=== PATIENT | male | born 1935 | race Caucasian/White ===

== ENCOUNTER 2016-12-17 07:21 | Day surgery (SDC) | payer MEDICARE, OTHER ==
--- NOTE | 2016-12-16 11:41 | PCM.ANEPRE ---
Anesthesia Pre-Op Review Reason for Review: CARDIAC Anesthesia Recommendations: Proceed with Procedure Additional Comments pt scheduled for cysto litholapaxy with laser. Pt also with a history of CAD s/ p CABG in 1995. recently saw applications processor with consult note in chart. Certified Professional Midwife states the patient is clinically stable and doing well from cardiac standpoint. he also notes that patient is on plavix and may need to coordinate cessation of it prior to surgery with urology . Dylan Pereira MD Dec 16, 2016 11:41
[2016-12-17] VITALS (9 sets, daily range): BP systolic 116–156; BP diastolic 71–88; PULSE 56–68; RESP 15–21; O2SAT 93–98
[~2016-12-17] VITALS: Ht 185.4 cm; Wt 90.2 kg
[2016-12-17] MEDS: Lactated Ringer's 1,000 ML IV SCH ×2 (05:12→09:54)
[~2016-12-17 07:21] MED LIST: ASCO100089 PO; ATOR20TA PO; CARV6.252 PO; CHOL200047 PO; CLOP75TA28 PO; DOXA1TAB PO; DOXY100T56 PO; FENO135C PO; FINA5TAB9 PO; LATA2.5D6 OP; LEVO100T6 PO; LOSA50TA37 PO; Levofloxacin 500 mg/100 mL D5W IV ONE; OMEG-86 PO
[2016-12-17] MEDS ORDERED: Propofol 10,000 mCg/mL 20 mL Inj ONE (07:22)
[2016-12-17] MEDS ORDERED: fentaNYL-PF 50 mCg/mL 2 mL Inj ONE (07:22)
[2016-12-17] MEDS ORDERED: Ondansetron 2 mg/mL 2 mL Inj ONE (07:22)
[2016-12-17] MEDS ORDERED: EPHEDrine/NS 5 mg/mL 5 mL Syringe ONE (07:22)
[2016-12-17] MEDS ORDERED: MetoCLOpramide 5 mg/mL 2 mL Inj ONE (07:22)
[2016-12-17] MEDS ORDERED: Dexamethasone 4 mg/mL Inj ONE (07:22)
[2016-12-17] MEDS ORDERED: Labetalol 5 mg/mL 4 mL Inj IV PRN (10:05)
[2016-12-17] MEDS ORDERED: hydrALAZINE 20 mg/mL Inj IVPUSH PRN (10:05)
[2016-12-17] MEDS ORDERED: HYDROmorphone 1 mg/mL Inj IVPUSH PRN (10:05)
[2016-12-17] MEDS ORDERED: Lactated Ringer's 1,000 ML IV SCH (10:05)
[2016-12-17] MEDS ORDERED: Ondansetron 2 mg/mL 2 mL Inj IVPUSH PRN (10:05)
[2016-12-17] MEDS ORDERED: Lactated Ringer's 500 ML IV PRN (10:05)
[2016-12-17] MEDS ORDERED: EPHEDrine Sulfate 50 mg/mL Inj IVPUSH PRN (10:05)
[2016-12-17] MEDS ORDERED: fentaNYL-PF 50 mCg/mL 2 mL Inj IVPUSH PRN (10:05)
[2016-12-17] MEDS ORDERED: MetoCLOpramide 5 mg/mL 2 mL Inj IVPUSH PRN (10:05)
[2016-12-17] MEDS ORDERED: Atropine 0.4 mg/mL Inj IVPUSH PRN (10:05)
[2016-12-17] MEDS ORDERED: Phenylephrine 10,000 mCg/mL Inj IVPUSH PRN (10:05)
--- NOTE | 2016-12-17 10:07 | PCM.HPANE ---
Patient Data Surgeon Admitting Provider: Attending Provider:Candice Gallagher MD Primary Care Physician:Delroy Edwards MD Other Provider:Flory Constantinoingham Anesthesia Reason for Visit Bilateral Kidney Stones Ht/WT & BMI Height (Feet): 6 Height (Inches): 1.00 Weight (Kilograms): 90.2 Body Mass Index 26.00 Allergies Coded Allergies: No Known Allergies (Verified Allergy, Unknown, 12/15/16) Diabetes History Hx Diabetes?: No Medications Blood Thinner: Plavix Hypertension Medication: Yes Home Meds Incl Beta Germain: Yes (Carvedilol 6.25mg) Date Beta Germain Taken: Dec 17, 2016 Time Beta Germain Taken: 0650 Reported Medications Losartan Potassium 50 Mg Fgbqgl93 Mg PO BID 12/15/16 Levothyroxine 100 Mcg [id number] Mcg PO DAILY For Thyroid Replacement Ref 0 12/15/16 Latanoprost 2.5 Ml Drops1 Gtt OP HS #1 BOTTLE 12/15/16 [place]-3S/Dha/Epa/Fish Oil/D3 (Fish Oil + D3 Softgel)1 Each Capsule1 Each PO BID 12/15/16 Finasteride 5 Mg Tablet5 Mg PO DAILY 30 Days Ref 0 12/15/16 Fenofibric Acid (Choline) (Trilipix)135 Mg Capsule.dr135 Mg PO HS 12/15/16 Doxycycline Monohydrate (Avidoxy)100 Mg Psfppb399 Mg PO BID 12/15/16 Doxazosin (Cardura)1 Mg Tablet1 Mg PO HS Ref 0 12/15/16 Clopidogrel 75 Mg Ozpsuj60 Mg PO DAILY Ref 0 12/15/16 Cholecalciferol (Vitamin D3) (Vitamin D3)2,000 Unit Capsule2,000 Unit PO BID 12/15/16 Carvedilol 6.25 Mg Tablet6.25 Mg PO BID Ref 0 12/15/16 Atorvastatin (Lipitor)20 Mg Kspjxn53 Mg PO DAILY Ref 0 12/15/16 Ascorbic Acid (Vitamin C)1,000 Mg Tab.chew1,000 Mg PO DAILY Ref 0 12/15/16 History Other HEENT Pertinent History: OTITIS EXTERNA OF RIGHT EAR Hx of Heart Problems?: Yes Cardiovascular History: Positive for:: Cardiac Surgery (CABG ) Coronary Artery Disease (HYPERLIPEDEMIA WITH MOD CAROTID DISEASE) Hypertension Other Cardiac History: HX OF SYNCOPE WITH NEGATIVE EP EVALUATION 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 (ROSACEA) Other History: Positive for:: Thyroid Disease (HYPOTHRYOID) Hx Diabetes: No Hx Alcohol Use: NoHx Substance Use: No Stop/Bang Risk Assessment Category Category 1A: Patient has history of documented sleep apnea, and HAS NOT received any narcotic, sedative or anesthesia administration during this stay. Category 1B: Patient has history of documented sleep apnea, and HAS received any narcotic , sedative or anesthesia administration during this stay Category 2: Patient has SUSPECTED Obstructive Sleep Apnea, and HAS received any narcotic , sedative or anesthesia administration during this stay. Category 3: Patient has SUSPECTED Obstructive Sleep Apnea and HAS NOT received narcotic, sedative or anesthesia administration during this stay. Category 4: Outpatient in Procedural Areas with known sleep apnea or who screen positive for High Risk via the STOP/BANG questionnaire. Exam Exam Vital Signs Vital Signs Date Time Temp Pulse Resp B/P Pulse Ox O2 Delivery O2 Flow Rate FiO2 12/17/16 07:52 36.5 57 16 142/75 97 Room Air General Appearance: Alert, Oriented X3, Cooperative, No Acute Distress HEENT/AIRWAY: MP 2 Lungs: Clear to Auscultation, Normal Air Movement Heart: Exam Unremarkable, Regular Rate/Rhythm, No Murmurs/Rubs/Gallops Meds/Labs/Diagnostics Admission Meds Current Medications Lactated Ringer's (Lr) 1,000 ml @ 120 mls/hr Q8H20M IV Last administered on t 05:12; Start 12/17/16 at 05:00; Stop 12/17/16 at 13:19 Plan Impression Patient chart reviewed, patient interviewed and anesthestic plan with risks, benefits, and alternatives discussed, and informed consent obtained. NPO Status: 12/16 at 1700 ASA Physical Status: ASA2 Mod Systemic Disease Anesthetic Plan: GA Bene/Risks/Altern/Consents: Yes HP Complete Prior to Induction: Yes Other pt wants a ga Delroy Arthur MD Dec 17, 2016 08:39
[2016-12-17] MEDS ORDERED: Belladonna Alk-Opium 60 mg Rectal Suppository RECTAL ONE (10:21)
[2016-12-17] MEDS ORDERED: HYDROcodone-APAP 5-325 mg Tablet PO PRN (11:20)
[2016-12-17] MEDS ORDERED: Phenazopyridine 97.5 mg Tablet PO PRN (11:20)
[2016-12-17] MEDS ORDERED: Ondansetron 8 mg ODT Tablet PO PRN (11:20)
--- NOTE | 2016-12-17 11:57 | PCM.ANEP2 ---
Post Anesthesia Evaluation ASA/CMS Post Anesthesia VS in Patient's Normal Range?: Yes Resp Stable; Airway Patent?: Yes CV Function & Hydration Stable: Yes Mental Status Recovered?: Yes Pain control Satisfactory?: Yes N/V Control Satisfactory?: Yes Delroy Arthur MD Dec 17, 2016 11:57
--- NOTE | 2016-12-17 11:57 | PCM.ANEP1 ---
Post Anesthesia Phase 1 PACU Phase 1 Assessment Vital Signs Vital Signs Date Time Temp Pulse Resp B/P Pulse Ox O2 Delivery O2 Flow Rate FiO2 12/17/16 11:51 59 21 144/88 94 Nasal Cannula 3 12/17/16 11:45 36.4 64 21 149/88 94 Nasal Cannula 3 12/17/16 11:30 62 19 150/87 98 Simple Mask 10 12/17/16 11:25 64 19 125/81 98 Simple Mask 10 12/17/16 11:20 66 21 134/71 97 Simple Mask 10 12/17/16 11:16 36.5 67 21 120/72 97 Simple Mask 10 12/17/16 07:52 36.5 57 16 142/75 97 Room Air Anesthetic Administered: GA Level of Alertness: Awake, talking GIBSON's with Equal Strength: Yes Pain: No Nausea or Vomiting: No Oxygen Delivery: Simple Mask Lungs: Clear to Auscultation, Normal Air Movement Dermatome Level: Full Sensation Delroy Arthur MD Dec 17, 2016 11:57
--- NOTE | 2016-12-18 13:46 | OP ---
[address] [address] OPERATIVE REPORT PATIENT: BRITTANY MÁRQUEZ : 1935 MR#: [id number] ADMIT: 12/17/2016 JOB ID: [id number] DATE OF SURGERY: 12/17/2016 PROCEDURE NAME: 1. Cystoscopy with a limited channel transurethral resection of prostate. 2. Cystolitholapaxy of a large amount of stone in aggregate, 4 x 5 x 2 cm in size as measured on CT. SURGEON: Candice Gallagher MD. ANESTHESIA: General. PREOPERATIVE DIAGNOSIS(ES): 1. Benign prostatic hypertrophy. 2. Intravesical prostate hematuria. 3. Bladder stones, multiple. POSTOPERATIVE DIAGNOSIS(ES): 1. Benign prostatic hypertrophy. 2. Intravesical prostate hematuria. 3. Bladder stones, multiple. INDICATIONS: The patient is an 81-year-old gentleman referred to Urology initially for gross hematuria. Found at workup to have bilateral nonobstructing renal stones and also a very enlarged prostate, incomplete bladder emptying and multiple rounded bladder stones in aggregate, easily 4 x 5 x 2 cm in size. Friable prostate with BPH changes. Counseled about options. Recommended certainly attention to remove the bladder stones to which he agreed. PROCEDURE IN DETAIL: After appropriate informed consent was obtained, patient was brought to the operating room. SCD were placed. Adequate general anesthesia was induced. He received IV Levaquin prior to onset of procedure. His preop urine culture was negative. He was carefully placed in dorsal position. All pressure points carefully padded. Cleaned, prepped, and draped usual sterile fashion. Rigid scope was introduced in the patient's bladder. Prostate was noted to be very large and quite friable with bleeding occurring with torquing of the scope itself to try to visualize the stones. This was making things quite difficult. To visualize the stones we were initially able to get in a 25-Argentine cystoscope sheath through which we could use the lithotrite mechanical and began to break the stone up. However, given the amount of bleeding we were getting from the prostate and difficulty visualizing the stones with the intravesical portion of the prostate, we elected to go ahead and switch over to the resectoscope setup and resect the prostate 180 degrees down enough to visualize better and achieve better hemostasis. This was done. It took about 20 minutes to resect that amount of prostate with the button for vaporization and cauterization. Once we did this, we were able to see a stone better once again, so removed the resectoscope and once again went in under visual guidance with the 25-Argentine outer sheath and were able to use the lithotrite to break up the remaining amount of stone with better visualization this time. Allowed us to remove this large burden of stone from the patient's bladder throughout the course of the case. Once this was done, and the stones themselves were all removed, we again removed the cystoscope. Went in again with visual obturator with the 27-Argentine resectoscope set and worked on hemostasis once again of this friable proximal ablated prostate area. Once we were done, urine was light red. The patient tolerated the procedure well. He was free of stones. A 22-Argentine Schulz catheter was passed easily into the patient's bladder. This was irrigated out further to quite clear and left to gravity drainage. Drainage there was light pink. He was given a B and O suppository, awakened and taken in stable condition to the postanesthesia care unit. LAURI
== END 2016-12-17 23:59 | disposition home or self-care (01) ==
LOC: SAS 07:21
PROVIDERS: ATTEND Urology
DX: N21.0 Calculus in bladder (principal); N40.1 Benign prostatic hyperplasia with lower urinary tract symptoms; R35.0 Frequency of micturition; R35.1 Nocturia; R39.15 Urgency of urination; I25.10 Atherosclerotic heart disease of native coronary artery without angina pectoris; I10 Essential (primary) hypertension; E78.5 Hyperlipidemia, unspecified; E03.9 Hypothyroidism, unspecified; Z79.02 Long term (current) use of antithrombotics/antiplatelets; Z86.73 Personal history of transient ischemic attack (TIA), and cerebral infarction without residual deficits; Z95.1 Presence of aortocoronary bypass graft; Z87.891 Personal history of nicotine dependence
CPT/HCPCS: 52318; 52601; J1100; J2405; J2765; J7120